=== PATIENT | male | born 1980 | race Caucasian/White ===

== ENCOUNTER 2019-07-30 17:23 | Emergency (ER) | payer BC, OTHER ==
[2019-07-30] MEDS ORDERED: cefTRIAXone 1 GM in Premix Bag 1 BAG IV ONE (17:48)
[2019-07-30 18:42] LABS: BLOOD UREA NITROGEN,BUN 14 mg/dL (7.0-18.0); CARBON DIOXIDE,CO2 25.2 mmol/L (21.0-32.0); CHLORIDE,CL 104 mmol/L (98-107); GLUCOSE RANDOM 104 mg/dL (74-106); SODIUM,NA 140 mmol/L (136-148)
[2019-07-30] MEDS ORDERED: Iopamidol 755 MG/ML 500 ML Multipack Bottle IVPUSH STA (19:05)
--- NOTE | 2019-07-30 19:38 | CT ---
INDICATION: Left-sided facial swelling for 1 week. Evaluate for abscess or cellulitis. CT FACE WITH CONTRAST TECHNIQUE: Multidetector axial CT imaging was performed through the face following intravenous administration of 75 mL Isovue 370. Coronal and sagittal reconstructions were generated. FINDINGS: There is soft tissue swelling abutting the anterolateral aspect of the left maxillary alveolar ridge where image 38 of series 201 and image 28 of series 205 show a 1.9 x 0.9 x 1.7 centimeter fluid collection with enhancing margins, consistent with an abscess. There multiple dental caries lesions, including caries of the upper left 1st bicuspid, the lateral root of which protrudes slightly through the cortex of the alveolar ridge, as on image 39 of series 203 and image 26 of series 205; this is potentially the source of the aforementioned soft tissue abscess. There is bilateral maxillary sinus mucosal thickening, moderate on the left and mild on the right, and mild mucosal thickening and scattered ethmoid air cells bilaterally. No acute fractures are identified. The orbits and their contents are within normal limits. Mastoid air cells are clear. IMPRESSION: 1. 1.9 x 0.9 x 1.7 centimeter soft tissue abscess abutting the anterolateral aspect of the left maxillary alveolar ridge. 2. Multiple dental caries, including caries of the upper left 1st bicuspid which is potentially the source of the aforementioned abscess. 3. Paranasal sinus mucosal thickening consistent with sinusitis, as noted above. HAYLIE CARRION MD [facility] Dictated by Kenn Carrion MD @ 07/30/2019 7:32:22 PM Dictated by: Kenn Carrion MD @ 07/30/2019 19:37:19 (Electronically Signed)
--- NOTE | 2019-07-30 19:47 | EDM.PDOC ---
ED HPI GENERAL MEDICAL PROBLEM - General Chief Complaint: General Stated Complaint: FACIAL SWELLING Time Seen by Provider: 07/30/19 17:31 Source of Information: Reports: Patient History Limitations: Reports: No Limitations - History of Present Illness INITIAL COMMENTS - FREE TEXT/NARRATIVE: HISTORY AND PHYSICAL: History of present illness: Patient is a 38-year-old male who presents to the ED today with concern of left- sided facial swelling for 1.5 weeks. Patient states he was seen initially when the face with swelling in the clinic and they thought he might have a sinus infection so gave him Augmentin. Patient states he took the antibiotic without improvement of the swelling. Patient states other than the swelling he is not having any pain or any other associated symptoms. Patient states his last dose of Augmentin was last night. Patient denies any health history or any other symptoms or concerns. Patient denies fever, chills, chest pain, shortness of breath, or cough. Denies headache, neck stiff ness, change in vision, syncope, or near syncope. Denies nausea, vomiting, abdominal pain, diarrhea, constipation, or dysuria. Has not noted any blood in urine or stool. Patient has been eating and drinking appropriately. Review of systems: As per history of present illness and below otherwise all systems reviewed and negative. Past medical history: As per history of present illness and as reviewed below otherwise noncontributory. Surgical history: As per history of present illness and as reviewed below otherwise noncontributory. Social history: See social history for further information Family history: As per history of present illness and as reviewed below otherwise noncontributory. Physical exam: General: Patient is alert, oriented, and in no acute distress. Patient sitting comfortably on exam table. HEENT: Atraumatic, normocephalic, pupils equal and reactive bilaterally, negative for conjunctival pallor or scleral icterus, mucous membranes moist, TMs normal bilaterally, throat clear, neck supple, nontender, trachea midline. No drooling or trismus noted. No meningeal signs. No hot potato voice noted. There is mild edema of the left maxillary sinus area without pain to palpation. Generalized poor dentition. Lungs: Clear to auscultation, breath sounds equal bilaterally, chest nontender. Heart: S1S2, regular rate and rhythm without overt murmur Abdomen: Soft, nondistended, nontender. Negative for masses or hepatosplenomegaly. Negative for costovertebral tenderness. Pelvis: Stable nontender. Genitourinary: Deferred. Rectal: Deferred. Skin: Intact, warm, dry. No lesions or rashes noted. Extremities: Atraumatic, negative for cords or calf pain. Neurovascular unremarkable. Neuro: Awake, alert, oriented. Cranial nerves II through XII unremarkable. Cerebellum unremarkable. Motor and sensory unremarkable throughout. Exam nonfocal. Notes: Dr. Salamanca verbally involved in patient care. Discussed the importance for follow-up with an oral surgeon/dentist. Voices understanding and is agreeable to plan of care. Denies any further questions or concerns at this time. Diagnostics: None Therapeutics: None Prescription: Clindamycin Impression: Dental abscess Plan: 1. Please take medication as prescribed. 2. Tylenol and/or ibuprofen as directed and as needed for pain management. 3. Follow-up with a dentist for definitive care. Return to the ED as needed and as discussed. Definitive disposition and diagnosis as appropriate pending reevaluation and review of above. Left Upper Oral/Mouth Pain Score (Numeric/FACES): 1 - Related Data Allergies Allergy/AdvReac Type Severity Reaction Status Date / Time No Known Allergies Allergy Verified 07/30/19 17:32 Home Meds: Home Meds . [No Known Home Meds] 03/24/19 [History] Past Medical History Respiratory History: Reports: Asthma Other Respiratory History: childhood asthma - Infectious Disease History Infectious Disease History: Reports: Chicken Pox - Past Surgical History HEENT Surgical History: Reports: Oral Surgery GI Surgical History: Reports: Hernia, Abdominal Musculoskeletal Surgical History: Reports: Other (See Below) Other Musculoskeletal Surgeries/Procedures:: R ACL surgery Social & Family History - Family History Family Medical History: Noncontributory Cardiac: Reports: Hypertension, [place] Endocrine/Metabolic: Reports: Diabetes, type II - Tobacco Use Smoking Status *Q: Current Every Day Smoker Years of Tobacco use: 20 Packs/Tins Daily: 0.5 - Caffeine Use Caffeine Use: Reports: Coffee - Recreational Drug Use Recreational Drug Use: No - Living Situation & Occupation Living situation: Reports: , with Spouse, with Family (4 kids) Occupation: Employed (lead consultant, [employer]) ED ROS GENERAL - Review of Systems Review Of Systems: ROS reveals no pertinent complaints other than HPI. ED EXAM, GENERAL - Physical Exam Exam: See Below (see dictation) Course - Vital Signs Last Recorded V/S: Last Vital Signs Temp 97.1 F 07/30/19 18:33 Pulse 81 07/30/19 18:33 Resp 18 07/30/19 18:33 BP 127/91 H 07/30/19 18:33 Pulse Ox 98 07/30/19 18:33 - Orders/Labs/Meds Orders: Active Orders 24 hr Category Date Time Status CULTURE BLOOD [BC] Stat Lab 07/30/19 17:53 Received CULTURE BLOOD [BC] Stat Lab 07/30/19 18:09 Received Blood Culture x2 Reflex Set [OM.PC] Stat Oth 07/30/19 17:46 Ordered Labs: Laboratory Tests 07/30/19 07/30/19 07/30/19 Range/Units 17:53 17:53 17:53 WBC 9.15 (4.0-11.0) K/uL RBC 4.87 (4.50-5.90) M/uL Hgb 15.3 (13.0-17.0) g/dL Hct 44.7 (38.0-50.0) % MCV 91.8 (80.0-98.0) fL MCH 31.4 (27.0-32.0) pg MCHC 34.2 (31.0-37.0) g/dL RDW Std Deviation 46.2 (28.0-62.0) fl RDW Coeff of Mor 14 (11.0-15.0) % Plt Count 257 (150-400) K/uL MPV 11.20 (7.40-12.00) fL Neut % (Auto) 55.3 (48.0-80.0) % Lymph % (Auto) 31.6 (16.0-40.0) % [place] % (Auto) 8.1 (0.0-15.0) % Eos % (Auto) 4.5 (0.0-7.0) % Baso % (Auto) 0.5 (0.0-1.5) % Neut # (Auto) 5.1 (1.4-5.7) K/uL Lymph # (Auto) 2.9 H (0.6-2.4) K/uL [place] # (Auto) 0.7 (0.0-0.8) K/uL Eos # (Auto) 0.4 (0.0-0.7) K/uL Baso # (Auto) 0.1 (0.0-0.1) K/uL Nucleated RBC % 0.0 /100WBC Nucleated RBCs # 0 K/uL Lactate 0.8 (0.20-2.00) mmol/L Sodium 140 (136-148) mmol/L Potassium 4.0 (3.5-5.1) mmol/L Chloride 104 (98-107) mmol/L Carbon Dioxide 25.2 (21.0-32.0) mmol/L BUN 14 (7.0-18.0) mg/dL Creatinine 1.0 (0.8-1.3) mg/dL Est Cr Clr Drug Dosing 112.08 mL/min Estimated GFR (MDRD) > 60.0 ml/min Glucose 104 (74-106) mg/dL Calcium 9.0 (8.5-10.1) mg/dL Total Bilirubin 0.2 (0.2-1.0) mg/dL AST 19 (15-37) IU/L ALT 31 (14-63) IU/L Alkaline Phosphatase 55 (46-116) U/L Total Protein 7.4 (6.4-8.2) g/dL Albumin 3.7 (3.4-5.0) g/dL Globulin 3.7 (2.6-4.0) g/dL Albumin/Globulin Ratio 1.0 (0.9-1.6) Meds: Medications Discontinued Medications Generic Name Dose Route Start Last Admin Trade Name Freq PRN Reason Stop Dose Admin Ceftriaxone Sodium/Dextrose 1 50 mls @ 100 mls/hr 07/30/19 17:48 07/30/19 18: 31 gm/ Premix IV 07/30/19 18:17 100 mls/hr ONETIME ONE Administration Iopamidol 75 ml 07/30/19 19:05 07/30/19 19:06 Isovue Multipack-370 (76%) IVPUSH 07/30/19 19:06 75 ml ONETIME STA Administration Departure - Departure Time of Disposition: 19:46 Disposition: Home, Self-Care 01 Clinical Impression: Dental abscess - Discharge Information Instructions: Dental Abscess, [id number] Referrals: PCP,None [Primary Care Provider] - Forms: ED Department Discharge Additional Instructions: The following information is given to patients seen in the emergency department who are being discharged to home. This information is to outline your options for follow-up care. We provide all patients seen in our emergency department with a follow-up referral. The need for follow-up, as well as the timing and circumstances, are variable depending upon the specifics of your emergency department visit. If you don't have a primary care physician on staff, we will provide you with a referral. We always advise you to contact your personal physician following an emergency department visit to inform them of the circumstance of the visit and for follow-up with them and/or the need for any referrals to a consulting specialist. The emergency department will also refer you to a specialist when appropriate. This referral assures that you have the opportunity for follow-up care with a specialist. All of these measure are taken in an effort to provide you with optimal care, which includes your follow-up. Under all circumstances we always encourage you to contact your private physician who remains a resource for coordinating your care. When calling for follow-up care, please make the office aware that this follow-up is from your recent emergency room visit. If for any reason you are refused follow-up, please contact the [facility] Emergency Department at and asked to speak to the emergency department charge nurse. [facility] [address] [place] [id number] [place] [address] 1. Please take medication as prescribed. 2. Tylenol and/or ibuprofen as directed and as needed for pain management. 3. Follow-up with a dentist for definitive care. Return to the ED as needed and as discussed. - My Orders Last 24 Hours: My Active Orders 07/30/19 17:46 Blood Culture x2 Reflex Set [OM.PC] Stat 07/30/19 17:53 CULTURE BLOOD [BC] Stat 07/30/19 18:09 CULTURE BLOOD [BC] Stat - Assessment/Plan Last 24 Hours: My Active Orders 07/30/19 17:46 Blood Culture x2 Reflex Set [OM.PC] Stat 07/30/19 17:53 CULTURE BLOOD [BC] Stat 07/30/19 18:09 CULTURE BLOOD [BC] Stat
[2019-07-30 19:54] VITALS: BP 134/97; PULSE 69
== END 2019-07-30 19:54 | disposition home or self-care (01) ==
LOC: MW.ED 17:23
DX: K04.7 Periapical abscess without sinus (principal); J45.909 Unspecified asthma, uncomplicated; F17.210 Nicotine dependence, cigarettes, uncomplicated
CPT/HCPCS: 36415; 70487; 80053; 83605; 85025; 87040; 96365; 99284; J0696; Q9967; 99282